=== PATIENT | female | born 1965 | race Caucasian/White ===

== ENCOUNTER → 2019-07-08 | Outpatient (CLI) | payer OTHER ==
[2019-07-08 09:50] LABS: ANION GAP 7 (5-13); BLOOD UREA NITROGEN 17 mg/dl (7-20); CALCIUM 9.3 mg/dl (8.4-10.2); CARBON DIOXIDE 28 mmol/L (21-31); CHLORIDE 105 mmol/L (97-110); CREATININE 0.73 mg/dl (0.44-1.00); Estimated GFR > 60 mL/min (>60); GLUCOSE 229 mg/dl (70-220); SODIUM 140 mmol/L (135-144)
== END | disposition home or self-care (01) ==
LOC: LAB 09:12
DX: R93.1 Abnormal findings on diagnostic imaging of heart and coronary circulation (principal); R07.9 Chest pain, unspecified
CPT/HCPCS: 80048